=== PATIENT | female | born 1985 | race Caucasian/White ===

== ENCOUNTER 2017-03-19 20:13 | Emergency (ER) | payer MEDICARE, MEDICAID ==
[~2017-03-19] VITALS: Ht 160 cm; Wt 86.5 kg
[~2017-03-19 20:13] MED LIST: ABILIFY15 MG PO; ABILIFY20 MG PO; AMBIEN CR12.5 MG/BO PO; AMBIEN10 MG PO; ANCEF-D5W2000 MG/50 IV; CATAFLAM50 MG PO; CELEXA10 MG PO; CELEXA20 MG PO; CELEXA40 MG PO; CITRATE OF MAG300 ML PO; CLONAZEPAM0.5 MG PO; CLONAZEPAM1 M1 PO; COLACE100 MG PO; DESYREL50 MG PO; GABAPENTIN300 MG PO; IBUPROFEN800 MG PO; LAMICTAL200 M1 PO; MIRALAX17 G1 PO; MOTRIN400 MG/TAB PO; NEURONTIN100 MG PO; NEXIUM40 MG; NORCO 10/325 TA1 TAB PO; NORCO 5/325 TAB1 TAB PO; NORCO 5/3251 TA2 PO; PERCOCET 7.5/321 TA1 PO; PERCOCET 7.5/321 TA2 PO; PRENATAL1 EACH PO; PRENATAL1 TAB; PRILOSEC20 MG PO; PROPRANOLOL HCL60 MG PO; SENOKOT-S (SENN1 TAB PO; SERAX15 MG PO; SEROQUEL XR150 MG PO; SOMA350 MG PO; TRAMADOL HCL50 MG PO; TRAZODONE100 MG PO; TYLENOL TA325 MG/TA1 PO; TYLENOL325 MG; ULTRAM50 MG PO; VICODIN 5/500 T1 TAB PO; VISTARIL50 MG PO; WELLBUTRIN XL150 MG PO; WELLBUTRIN XL300 MG PO; ZANTAC15; ZOFRAN ODT4 MG/UDTAB PO; ZOLPIDEM TART12.5 MG PO
[2017-03-19] MEDS ORDERED: NEURONTIN300 M1 PO (20:28)
[2017-03-19] MEDS ORDERED: TIZANIDINE HCL4 M2 PO (20:28)
[2017-03-19] MEDS ORDERED: VENTOLIN HFA18 G2 PO (20:28)
[2017-03-19] MEDS ORDERED: NEO-SYNEPHRINE15 ML (20:29)
[2017-03-19] MEDS ORDERED: IBUPROFEN800 M1 PO (20:29)
[2017-03-19] MEDS ORDERED: AMOXICILLIN500 M2 PO (20:46)
== END 2017-03-19 20:54 ==
LOC: EDMED 20:13
DX: J01.00 Acute maxillary sinusitis, unspecified (principal); F17.210 Nicotine dependence, cigarettes, uncomplicated; Z87.19 Personal history of other diseases of the digestive system; Z90.49 Acquired absence of other specified parts of digestive tract; Z90.710 Acquired absence of both cervix and uterus